=== PATIENT | male | born 1975 | race African-American/Black ===

== ENCOUNTER 2019-02-17 18:55 | Inpatient (IN) | payer OTHER ==
--- NOTE | 2019-02-17 21:26 | HP ---
"COWS - Scale Resting Pulse: 0= PA 80 or Below Sweatin=Flushed/Facial Moisture Restless Observation: 1= Difficult to Sit Still Pupil Size: 2= Moderately Dilated (Pupils = 5 mm) Bone or Joint Aches: 1= Mild Discomfort Runny Nose/ Eye Tearin= Nasal Congestion GI Upset > 30mins: 0= None Tremor Observation: 2= Slight Tremor Visible Yawning Observation: 0= None Anxiety or Irritability: 1=Feels Anxious/Irritable Goose Flesh Skin: 0=Smooth Skin COWS Score: 10 CIWA Score Nausea/Vomitin-No Nausea/No Vomiting Muscle Tremors: 3 Anxiety: 3 Agitation: 3 Paroxysmal Sweats: 3 (Increased facial moisture) Orientation: 0-Oriented Tacttile Disturbances: 0-None Auditory Disturbances: 0-None Visual Disturbances: 0-None Headache: 0-None Present CIWA-Ar Total Score: 12 - Admission Criteria [facility]ASAS Guidelines: Admission for Medically Managed Detox: Requires at least one of the followin. CIWA greater than 12 2. Seizures within the past 24 hours 3. Delirium tremens within the past 24 hours 4. Hallucinations within the past 24 hours 5. Acute intervention needed for co occurring medical disorder 6. Acute intervention needed for co occurring psychiatric disorder 7. Severe withdrawal that cannot be handled at a lower level of care (continued vomiting, continued diarrhea, abnormal vital signs) requiring intravenous medication and/or fluids 8. Patient presents the following: CIWA greater than 12 (DIANE 0.245) Admission Criteria Met: Admission criteria met Admission ROS [facility] Chief Complaint: Here for heroin and alcohol withdrawal. Allergies/Adverse Reactions: Allergies Allergy/AdvReac Type Severity Reaction Status Date / Time No Known Allergies Allergy Verified 02/17/19 20:51 History of Present Illness: Here for alcohol and heroin detox. Alcohol use began at age 12. Current use of 1 pint/day x 3 years. Current DIANE 0.245 Heroin use began at age 21. Current use of 3 bag/day x 1 year. (Nasal) Denies BZO use. Longest length of sobriety 15 months. Denies hx seizures. Hx blackouts. States last today. Hx: 2 overdoses, years ago. Has a Narcan kit at home. PMHx: Heart murmur. Denies heart attack. Denies other significant PMH. MHHx: Some anxiety. Denies depression. Denies thoughts of harming self or others. Search Terms: Callie Jacobsen, 1975 Search Date: 02/17/2019 09:18:50 PM The Drug Utilization Report below displays all of the controlled substance prescriptions, if any, that your patient has filled in the last twelve months. The information displayed on this report is compiled from pharmacy submissions to the Department, and accurately reflects the information as submitted by the pharmacies. This report was requested by: Beverly Rehman | Reference #: [id number] There are no results for the search terms that you entered. Patient Name: CALLIE JACOBSEN Date: 1975 Address: [address] [place] [address] Sex: Male Rx Written Rx Dispensed Drug Strength Quantity Days Supply Prescriber Name 03/01/2017 03/01/2017 HYDROCODON-ACETAMINOPH 7.5-325 15.0 2 DEE VENEGAS TOMMY 03/15/2017 03/15/2017 TRAMADOL HCL 50 MG TABLET 15.0 2 DEE VENEGAS TOMMY 12/09/2017 12/10/2017 TRAMADOL HCL 50 MG TABLET 12.0 4 GARCIA NGUYEN Exam Limitations: No Limitations - Ebola screening Have you traveled outside of the country in the last 21 days: No Have you had contact with anyone from an Ebola affected area: No Have you been sick,other than usual withdrawal symptoms: No Do you have a fever: No - Review of Systems Constitutional: Chills, Diaphoresis, Changes in sleep (Difficulty falling and staying asleep. Not on any medications at this time.) EENT: reports: Nose Congestion Respiratory: reports: No Symptoms reported Cardiac: reports: No Symptoms Reported GI: reports: Indigestion (Occassional heart burn) : reports: No Symptoms Reported Musculoskeletal: reports: Back Pain (from heroin withdrawal) Integumentary: reports: No Symptoms Reported Neuro: reports: Tremors Endocrine: reports: Increased Thirst, Change in Weight (Lost 6 lbs in last 2-3 weeks.) Hematology: reports: No Symptoms Reported Psychiatric: reports: Judgement Intact, Orientated x3, Agitated, Anxious Patient History - PPD History Previous Implant?: Yes Documented Results: Negative w/o proof Implanted On Prior [facility] Admission?: No PPD to be Administered?: Yes - Smoking Cessation Smoking history: Current every day smoker Have you smoked in the past 12 months: Yes Aproximately how many cigarettes per day: 10 Hx Chewing Tobacco Use: No Initiated information on smoking cessation: Yes 'Breaking Loose' booklet given: 02/17/19 - Substance & Tx. History Hx Alcohol Use: Yes Hx Substance Use: Yes Substance Use Type: Alcohol, Heroin, Marijuana Hx Substance Use Treatment: Yes (detox, rehab, past [facility]; ) - Substances abused Alcohol Substance route: Oral Frequency: Daily Amount used: 1 pint liquor Age of first use: 12 Date of last use: 02/17/19 Heroin Substance route: Inhalation Frequency: Daily Amount used: 3 bags Age of first use: 21 (Current amt x 1 yr) Date of last use: 02/17/19 Marijuana/Hashish Substance route: Smoking Frequency: 1-2 times per week Amount used: 1 joint Age of first use: 12 Date of last use: 02/16/19 Admission Physical Exam [facility] - Physical General Appearance: Yes: Mild Distress, Tremorous, Sweating, Anxious HEENTM: Yes: EOMI, Hearing grossly Normal, Normocephalic, Normal Voice, JEVON ( Pupils = 5 mm) Respiratory: Yes: Chest Non-Tender, Lungs Clear, Normal Breath Sounds, No Respiratory Distress, Other (Cough productive of clear phlegm.) Neck: Yes: No masses,lesions,Nodules, Supple Breast: Yes: Breast Exam Deferred Cardiology: Yes: Regular Rhythm, Regular Rate, Murmur Abdominal: Yes: Non Tender, Flat, Soft, Increased Bowel Sounds Genitourinary: Yes: Within Normal Limits Back: Yes: Normal Inspection Musculoskeletal: Yes: full range of Motion, Gait Steady, Joint swelling ( Enlarged (R) knee compared to (L)) Extremities: Yes: Normal Capillary Refill, Normal Range of Motion, Non-Tender, Tremors Neurological: Yes: molded parts inspector II-XII NML intact, Fully Oriented, Alert, Motor Strength 5/5, Normal Mood/Affect Integumentary: Yes: Normal Color, Dry (Decreased skin turgor. except for increased facial moisture), Warm, Diaphoresis (Facial moisture) Lymphatic: Yes: Within Normal Limits - Diagnostic (1) Alcohol dependence with uncomplicated withdrawal Current Visit: Yes Status: Acute (2) Opioid dependence with withdrawal Current Visit: Yes Status: Acute (3) Nicotine dependence, uncomplicated Current Visit: Yes Status: Acute (4) Acid reflux Current Visit: Yes Status: Acute (5) Dehydration Current Visit: Yes Status: Acute (6) Cannabis dependence, uncomplicated Current Visit: Yes Status: Acute (7) Cardiac murmur Current Visit: Yes Status: Acute Cleared for Admission [facility] - Detox or Rehab [facility] Level of Care: Medically Managed Detox Regimen/Protocol: Methadone/Librium Inpatient Rehab Admission - Rehab Decision to Admit Inpatient rehab admission?: No"
[2019-02-17] MEDS ORDERED: guaiFENesin 200 MG/10 ML 10 ML UNIT-DOSE CUPS PO PRN (22:11)
[2019-02-17] MEDS ORDERED: MENTHOL/PHENOL 1 EACH UD MM PRN (22:11)
[2019-02-17] MEDS ORDERED: NICOTINE POLACRILEX 2 MG GUM BUC PRN (22:11)
[2019-02-17] MEDS ORDERED: MAG HYDROX/AL HYDROX/SIMETH 30 ML UNIT-DOSE CUP PO PRN (22:11)
[2019-02-17] MEDS ORDERED: chlordiazePOXIDE HCL 25 MG CAPSULE PO PRN (22:11)
[2019-02-17] MEDS ORDERED: MAGNESIUM HYDROX 2400MG/30ML ORAL SUSPENSION 30 ML CUP PO PRN (22:11)
[2019-02-17] MEDS ORDERED: ACETAMINOPHEN 325 MG TABLET (FP) PO PRN ×2 (22:11)
[2019-02-17] MEDS ORDERED: IBUPROFEN 400 MG TABLET (FP) PO PRN (22:11)
[2019-02-17] MEDS ORDERED: traZODone HCL 50 MG TABLET (FP) PO PRN (22:11)
[2019-02-17] MEDS ORDERED: METHOCARBAMOL 500 MG TABLET PO PRN (22:11)
[2019-02-17] MEDS ORDERED: NALOXONE HCL 0.4 MG/ML VIAL IVPUSH PRN (22:11)
[2019-02-17] MEDS ORDERED: BISMUTH SUBSALICYLATE 524 MG/30 ML UD PO PRN (22:11)
[2019-02-17] MEDS ORDERED: PROCHLORPERAZINE MALEATE 5 MG TABLET PO PRN (22:11)
[2019-02-17] MEDS ORDERED: MAGNESIUM CITRATE 300 ML BOTTLE PO PRN (22:11)
[2019-02-17] MEDS ORDERED: chlordiazePOXIDE HCL 25 MG CAPSULE PO SCH (23:00)
[2019-02-17] MEDS ORDERED: METHADONE HCL 10 MG TABLET (FOR DETOX USE ONLY) PO ONE (23:00)
[2019-02-18] MEDS ORDERED: chlordiazePOXIDE HCL 25 MG CAPSULE PO ONE (00:11)
[2019-02-18] MEDS ORDERED: cloNIDine HCL 0.1 MG TABLET PO PRN (00:11)
[2019-02-18] MEDS ORDERED: P-EPHED 60MG/TRIPROLIDI 2.5MG TABLET PO PRN (00:11)
[2019-02-18] MEDS ORDERED: METHADONE HCL 10 MG TABLET (FOR DETOX USE ONLY) PO ONE ×4 (00:20→23:00)
[2019-02-18] MEDS: PANTOPRAZOLE 20 MG TABLET (FP) PO SCH ×3 (00:57→22:04)
[2019-02-18] MEDS: chlordiazePOXIDE HCL 25 MG CAPSULE PO SCH ×4 (05:37→22:05)
--- NOTE | 2019-02-18 09:19 | PN ---
[facility] CIWA - CIWA Score Nausea/Vomitin Muscle Tremors: 2 Anxiety: 2 Agitation: 2 Paroxysmal Sweats: 2 Orientation: 0-Oriented Tacttile Disturbances: 1-Very Mild Itch/Numbness Auditory Disturbances: 1-Very Mild Visual Disturbances: 0-None Headache: 2-Mild CIWA-Ar Total Score: 14 [facility] COWS - Scale Resting Pulse: 0= [place] 80 or Below Sweatin= Chills/Flushing Restless Observation: 1= Difficult to Sit Still Pupil Size: 1= Pupils >than Normal Bone or Joint Aches: 2= Severe Diffuse Aches Runny Nose/ Eye Tearin= Runny Nose/Eyes GI Upset > 30mins: 2= Nausea/Diarrhea Tremor Observation of Outstretched Hands: 2= Slight Tremor Visible Yawning Observation: 1= 1-2x During Session Anxiety or Irritability: 2=Irritable/Anxious Goose Flesh Skin: 0=Smooth Skin COWS Score: 14 S Progress Note (SOAP) Subjective: alert,irritable,anxious,interrupted sleep,tremor,tremor Objective: 02/18/19 09:16 Vital Signs Temperature 98.4 F 02/18/19 06:00 Pulse Rate 68 02/18/19 08:00 Respiratory Rate 18 02/18/19 08:00 Blood Pressure 126/74 02/18/19 06:00 O2 Sat by Pulse Oximetry (%) ekg sinus bradycardia 42/min qt/qtc 450/418 no chest pain,no sob,no dizziness labs pending Assessment: 02/18/19 09:18 withdrawal symptom Plan: continue detox
[2019-02-18 09:58] LABS: HEMATOCRIT 33.5 % (35.4-49); HEMOGLOBIN 11.3 GM/dL (11.7-16.9); MCH 32.1 pg (25.7-33.7); MCHC 33.7 g/dl (32.0-35.9); MEAN CELL VOLUME 95.2 fl (80-96); MEAN PLT VOLUME 7.7 fl (7.5-11.1); PLATELET COUNT 376 K/MM3 (134-434); RBC 3.52 M/mm3 (4.00-5.60); RDW 14.2 % (11.9-15.9); WHITE BLOOD COUNT 5.3 K/mm3 (4.0-10.0)
[2019-02-18] MEDS: NICOTINE 21 MG/24 HOURS TOPICAL PATCH TD SCH (10:10)
[2019-02-18] MEDS: PRENATAL VITAMINS W/ FOLIC ACID TABLET (FP) PO SCH (10:11)
[2019-02-18 10:24] LABS: ALBUMIN 3.3 g/dl (3.4-5.0); ALK PHOS 55 U/L (45-117); ANION GAP 7 MMOL/L (8-16); BILIRUBIN,TOTAL 0.3 mg/dL (0.2-1); BLOOD UREA NITROGEN 10 mg/dL (7-18); CALCIUM 8.7 mg/dL (8.5-10.1); CHLORIDE 102 mmol/L (98-107); CO2 29 mmol/L (21-32); CREATININE 0.7 mg/dL (0.55-1.3); GLUCOSE,RANDOM 117 mg/dL (74-106); POTASSIUM 3.8 mmol/L (3.5-5.1); SGOT/AST 68 U/L (15-37); SGPT/ALT 45 U/L (13-61); SODIUM 138 mmol/L (136-145); TOT PROT 6.7 g/dl (6.4-8.2)
[2019-02-18 11:35] LABS: EPI CELLS 1.2 /HPF (0-5); PH,URINE 6.5 (5.0-8.0); URINE APPEARANCE CLEAR; URINE BACTERIA 1.4 /hpf (NEGATIVE); URINE BILIRUBIN NEGATIVE (NEGATIVE); URINE CASTS 1 /hpf (0-8); URINE COLOR YELLOW; URINE GLUCOSE (UA) NEGATIVE (NEGATIVE); URINE KETONE NEGATIVE (NEGATIVE); URINE LEUK ESTERASE NEGATIVE (NEGATIVE); URINE NITRITE NEGATIVE (NEGATIVE); URINE PROTEIN 1+ (NEGATIVE); URINE RBC 0 /hpf (0-4); URINE UROBILINOGEN 0.2 mg/dL (0.2-1.0); URINE WBC 1 /hpf (0-5)
--- NOTE | 2019-02-18 14:46 | EKG ---
Test Reason : Blood Pressure : / mmHG Vent. Rate : 052 BPM Atrial Rate : 052 BPM P-R Int : 180 ms QRS Dur : 090 ms QT Int : 450 ms P-R-T Axes : 053 064 060 degrees QTc Int : 418 ms SINUS BRADYCARDIA OTHERWISE NORMAL ECG NO PREVIOUS ECGS AVAILABLE Confirmed by Dinh Chu ([id number]) on 02/18/2019 2:45:42 PM Referred By: Confirmed By:Dinh Chu
[2019-02-18] MEDS: MELATONIN 5 MG TABLETS PO PRN (22:04)
[2019-02-18] MEDS: THIAMINE HCL 100 MG TABLET (FP) PO SCH (22:04)
[2019-02-18] MEDS ORDERED: chlordiazePOXIDE HCL 25 MG CAPSULE PO SCH (23:00)
[2019-02-19] MEDS: chlordiazePOXIDE HCL 25 MG CAPSULE PO SCH ×4 (05:36→22:13)
[2019-02-19] MEDS ORDERED: METHADONE HCL 10 MG TABLET (FOR DETOX USE ONLY) PO ONE ×2 (10:00)
[2019-02-19] MEDS: PRENATAL VITAMINS W/ FOLIC ACID TABLET (FP) PO SCH (10:27)
[2019-02-19] MEDS: PANTOPRAZOLE 20 MG TABLET (FP) PO SCH ×2 (10:28→22:13)
[2019-02-19] MEDS: NICOTINE 21 MG/24 HOURS TOPICAL PATCH TD SCH (10:29)
--- NOTE | 2019-02-19 10:36 | PN ---
[facility] CIWA - CIWA Score Nausea/Vomitin-Mild Nausea/No Vomiting Muscle Tremors: 1-None Visible, but [place] Anxiety: 1-Mildly Anxious Agitation: 1-Slight > Activity Paroxysmal Sweats: 1-Minimal Palms Moist Orientation: 0-Oriented Tacttile Disturbances: 0-None Auditory Disturbances: 0-None Visual Disturbances: 0-None Headache: 0-None Present CIWA-Ar Total Score: 5 S COWS - Scale Resting Pulse: 0= MD 80 or Below Restless Observation: 0= Sits Still Pupil Size: 0= Normal to Room Light Bone or Joint Aches: 0= None Runny Nose/ Eye Tearin= None GI Upset > 30mins: 0= None Tremor Observation of Outstretched Hands: 0= None Yawning Observation: 0= None Anxiety or Irritability: 1=Feels Anxious/Irritable Goose Flesh Skin: 0=Smooth Skin [facility] Progress Note (SOAP) Subjective: pt states feels better on alcohol and heroin detox protocol, no complaints today O: Vital Signs - 24 hr 02/18/19 02/18/19 02/18/19 11:00 11:30 12:00 Temperature Pulse Rate 79 88 88 Respiratory 16 16 16 Rate Blood Pressure 02/18/19 02/18/19 02/18/19 12:30 13:00 13:30 Temperature Pulse Rate 78 74 77 Respiratory 16 16 16 Rate Blood Pressure 02/18/19 02/18/19 02/18/19 14:00 14:30 15:00 Temperature Pulse Rate 81 72 64 Respiratory 16 16 16 Rate Blood Pressure 02/18/19 02/18/19 02/18/19 15:30 16:00 16:30 Temperature Pulse Rate 68 78 55 L Respiratory 16 16 16 Rate Blood Pressure 02/18/19 02/18/19 02/18/19 16:48 17:00 17:30 Temperature 98.2 F Pulse Rate 55 L 98 H 78 Respiratory 16 16 16 Rate Blood Pressure 148/89 02/18/19 02/18/19 02/18/19 18:00 18:30 19:00 Temperature Pulse Rate 68 90 98 H Respiratory 16 16 16 Rate Blood Pressure 02/18/19 02/18/19 02/18/19 19:30 20:00 20:30 Temperature Pulse Rate 71 72 68 Respiratory 16 18 18 Rate Blood Pressure 0402/18/19 02/18/19 21:00 21:10 21:30 Temperature 98.2 F Pulse Rate 80 57 L Respiratory 18 18 62 H Rate Blood Pressure 149/98 02/18/19 02/18/19 02/18/19 22:00 22:30 23:00 Temperature Pulse Rate 80 92 H 92 H Respiratory Rate Blood Pressure 02/18/19 02/19/19 02/19/19 23:30 00:00 00:30 Temperature Pulse Rate 78 82 82 Respiratory 18 18 18 Rate Blood Pressure 02/19/19 02/19/19 02/19/19 03:30 07:46 09:05 Temperature 97.7 F 97.7 F Pulse Rate 58 L 60 Respiratory 18 18 18 Rate Blood Pressure 144/72 129/57 L Laboratory Tests 02/18/19 02/18/19 02/18/19 00:02 07:00 07:00 WBC 5.3 RBC 3.52 L Hgb 11.3 L Hct 33.5 L MCV 95.2 MCH 32.1 MCHC 33.7 RDW 14.2 Plt Count 376 MPV 7.7 Sodium 138 Potassium 3.8 Chloride 102 Carbon Dioxide 29 Anion Gap 7 L BUN 10 Creatinine 0.7 Creat Clearance w eGFR 121.95 Random Glucose 117 H Calcium 8.7 Total Bilirubin 0.3 AST 68 H ALT 45 Alkaline Phosphatase 55 Total Protein 6.7 Albumin 3.3 L Urine Color Yellow Urine Appearance Clear Urine pH 6.5 Ur Specific [place] 1.011 Urine Protein 1+ H Urine Glucose (UA) Negative Urine Ketones Negative Urine Blood Negative Urine Nitrite Negative Urine Bilirubin Negative Urine Urobilinogen 0.2 Ur Leukocyte Esterase Negative Urine WBC (Auto) 1 Urine RBC (Auto) 0 Urine Casts (Auto) 1 U Epithel Cells (Auto) 1.2 Urine Bacteria (Auto) 1.4 RPR Titer 02/18/19 07:00 WBC RBC Hgb Hct MCV MCH MCHC RDW Plt Count MPV Sodium Potassium Chloride Carbon Dioxide Anion Gap BUN Creatinine Creat Clearance w eGFR Random Glucose Calcium Total Bilirubin AST ALT Alkaline Phosphatase Total Protein Albumin Urine Color Urine Appearance Urine pH Ur Specific [place] Urine Protein Urine Glucose (UA) Urine Ketones Urine Blood Urine Nitrite Urine Bilirubin Urine Urobilinogen Ur Leukocyte Esterase Urine WBC (Auto) Urine RBC (Auto) Urine Casts (Auto) U Epithel Cells (Auto) Urine Bacteria (Auto) RPR Titer Nonreactive labs mild anemia increased AST VS: WNL a/p: continue alcohol and methadone detox protocols: pt doing better today, d/w pt long MAT for heroin and alcohol Tx options
[2019-02-19] MEDS: chlordiazePOXIDE HCL 25 MG CAPSULE PO PRN ×2 (12:24→19:16)
[2019-02-19] MEDS: THIAMINE HCL 100 MG TABLET (FP) PO SCH (22:13)
[2019-02-19] MEDS: MELATONIN 5 MG TABLETS PO PRN (22:14)
[2019-02-19] MEDS ORDERED: chlordiazePOXIDE HCL 10 MG CAPSULE PO PRN (23:00)
[2019-02-19] MEDS ORDERED: chlordiazePOXIDE HCL 10 MG CAPSULE PO SCH (23:00)
[2019-02-20] MEDS: chlordiazePOXIDE HCL 25 MG CAPSULE PO PRN (02:42)
[2019-02-20] MEDS: chlordiazePOXIDE HCL 10 MG CAPSULE PO SCH ×2 (06:28→10:26)
--- NOTE | 2019-02-20 09:06 | PN ---
[facility] Progress Note (SOAP) Subjective: alert,irritable,anxious,interrupted sleep,painiin the body and back Objective: 02/20/19 09:05 Vital Signs Temperature 98.2 F 02/20/19 07:27 Pulse Rate 67 02/20/19 07:27 Respiratory Rate 18 02/20/19 07:27 Blood Pressure 130/80 02/20/19 07:27 O2 Sat by Pulse Oximetry (%) Assessment: 02/20/19 09:06 withdrawal symptom Plan: continue detox,discharge in am
--- NOTE | 2019-02-20 09:30 | CONSULT ---
[facility] Psychiatric Consult - Data Date of interview: 02/20/19 Admission source: [facility] Identifying data: Patient is a 44 year old single male, without children, unemployed, and currently homeless. This is patient's first admission to detox at [facility]. Patient admitted to for alcohol and opioid dependence. Substance Abuse History: Smoking Cessation. Smoking history: Current every day smoker. Have you smoked in the past 12 months: Yes. Aproximately how many cigarettes per day: 10. Hx Chewing Tobacco Use: No. Initiated information on smoking cessation: Yes. 'Breaking Loose' booklet given: 02/17/19. - Substance & Tx. History. Hx Alcohol Use: Yes. Hx Substance Use: Yes. Substance Use Type : Alcohol, Heroin, Marijuana. Hx Substance Use Treatment: Yes (detox, rehab, past [facility]; ). - Substances abused. Alcohol. Substance route: Oral. Frequency: Daily. Amount used: 1 pint liquor. Age of first use: 12. Date of last use: 02/17/19. Heroin. Substance route: Inhalation. Frequency: Daily. Amount used: 3 bags. Age of first use: 21 (Current amt x 1 yr). Date of last use: 02/17/19. Marijuana/Hashish. Substance route: Smoking. Frequency: 1-2 times per week. Amount used: 1 joint. Age of first use: 12. Date of last use: 02/16/19 Medical History: Heart murmur Psychiatric History: Patient's first psychiatric contact was as a child to address his "acting out" behavior. Than as a [age] year old he reports seeing a psychiatrist daily while he was in the [facility] [employer] [employer] program. He reports seeing additional psychiatrist throghout his years as an adolescent. He denies accepting psychotropic medications as a child. As an adult he reports intermittent psychiatric treatment. He reports most recently seeing a psychiatrist last year in [place] and reports taking a "medication" he can't recall. Patient with a history of noncompliance to psychiatric treatment. Mr. Flores denies h/o psychiatric hospitalizations and suicide attempt. At present , he reports anxiety. Physical/Sexual Abuse/Trauma History: denies. Mental Status Exam - Mental Status Exam Alert and Oriented to: Time, Place, Person Cognitive Function: Good Patient Appearance: Well Groomed Mood: Sad Affect: Appropriate Patient Behavior: Cooperative Speech Pattern: Appropriate Voice Loudness: Normal Thought Process: Intact, Goal Oriented Thought Disorder: Not Present Hallucinations: Denies Suicidal Ideation: Denies Homicidal Ideation: Denies Insight/Judgement: Poor Sleep: Fair Appetite: Fair Muscle strength/Tone: Normal Gait/Station: Normal Psychiatric Findings - Problem List ([place] 1, 2,3) (1) Substance induced mood disorder Current Visit: Yes Status: Acute (2) Alcohol dependence with uncomplicated withdrawal Current Visit: Yes Status: Acute (3) Cannabis dependence, uncomplicated Current Visit: Yes Status: Acute (4) Nicotine dependence, uncomplicated Current Visit: Yes Status: Acute (5) Opioid dependence with withdrawal Current Visit: Yes Status: Acute - Initial Treatment Plan Initial Treatment Plan: Psychoeducation provided. Detoxification in progress. Will increase vistaril 25mg q6h to 50mg q6h. Benefits and side effects discussed. Verbal consent given.
[2019-02-20] MEDS ORDERED: METHADONE HCL 10 MG TABLET (FOR DETOX USE ONLY) PO ONE ×2 (10:00)
[2019-02-20] MEDS: PANTOPRAZOLE 20 MG TABLET (FP) PO SCH ×2 (10:26→22:13)
[2019-02-20] MEDS: PRENATAL VITAMINS W/ FOLIC ACID TABLET (FP) PO SCH (10:26)
[2019-02-20] MEDS: NICOTINE 21 MG/24 HOURS TOPICAL PATCH TD SCH (10:27)
[2019-02-20] MEDS: chlordiazePOXIDE HCL 10 MG CAPSULE PO PRN ×2 (13:21→17:37)
[2019-02-20] MEDS ORDERED: hydrOXYzine PAMOATE 50 MG CAPSULE (FP) PO PRN (19:11)
[2019-02-20] MEDS: THIAMINE HCL 100 MG TABLET (FP) PO SCH (22:13)
[2019-02-20] MEDS: MELATONIN 5 MG TABLETS PO PRN (22:15)
[2019-02-20] MEDS ORDERED: chlordiazePOXIDE HCL 10 MG CAPSULE PO SCH (23:00)
[2019-02-20] MEDS ORDERED: chlordiazePOXIDE HCL 10 MG CAPSULE PO ONE (23:00)
[2019-02-21] MEDS ORDERED: chlordiazePOXIDE HCL 10 MG CAPSULE PO SCH (05:00)
[2019-02-21] MEDS ORDERED: chlordiazePOXIDE HCL 10 MG CAPSULE PO ONE (06:00)
[2019-02-21] MEDS ORDERED: METHADONE HCL 5 MG TABLET (FOR DETOX USE ONLY) PO ONE (06:00)
[2019-02-21] MEDS ORDERED: METHADONE HCL 10 MG TABLET (FOR DETOX USE ONLY) PO ONE ×2 (06:00→10:00)
[2019-02-21 06:31] VITALS: BP 117/73; PULSE 54; TEMP 98.4
--- NOTE | 2019-02-21 08:53 | DS ---
[facility] Detox Discharge Summary Admission Date: 02/17/19 Discharge Date: 02/21/19 - History Present History: Alcohol Dependence, Cannabis Dependence, Opioid Dependence - Physical Exam Results Vital Signs: Vital Signs Temperature 98.4 F 02/21/19 06:31 Pulse Rate 54 L 02/21/19 06:31 Respiratory Rate 18 02/21/19 06:31 Blood Pressure 117/73 02/21/19 06:31 O2 Sat by Pulse Oximetry (%) - Treatment Hospital Course: Detox Protocol Followed, Detoxed Safely, Responded well, Discharged Condition Good, Rehab Referral Accepted - Medication Discharge Medications: Ambulatory Orders NK [No Known Home Medication] 02/17/19 - Diagnosis (1) Acid reflux Current Visit: Yes Status: Chronic Qualifiers: Esophagitis presence: without esophagitis Qualified Code(s): K21.9 - Gastro -esophageal reflux disease without esophagitis (2) Alcohol dependence with uncomplicated withdrawal Current Visit: Yes Status: Chronic (3) Cannabis dependence, uncomplicated Current Visit: Yes Status: Chronic (4) Cardiac murmur Current Visit: Yes Status: Acute (5) Dehydration Current Visit: Yes Status: Acute (6) Nicotine dependence, uncomplicated Current Visit: Yes Status: Acute Qualifiers: Nicotine product type: cigarettes Qualified Code(s): F17.210 - Nicotine dependence, cigarettes, uncomplicated (7) Opioid dependence with withdrawal Current Visit: Yes Status: Chronic (8) Substance induced mood disorder Current Visit: Yes Status: Acute - AMA Did Patient Leave Against Medical Advice: No (referred to outpatient rehab)
[2019-02-22] MEDS ORDERED: METHADONE HCL 5 MG TABLET (FOR DETOX USE ONLY) PO ONE (06:00)
== END 2019-02-21 09:29 | disposition home or self-care (01) | DRG 773 ==
LOC: YASAS 18:55 → Y6N 22:47
PROVIDERS: ADMIT Surgery; ATTEND Surgery
PROC: HZ2ZZZZ Detoxification Services for Substance Abuse Treatment (ICD-10-PCS; principal; 2019-02-17)
DX: F11.23 Opioid dependence with withdrawal (principal); F10.230 Alcohol dependence with withdrawal, uncomplicated; F12.20 Cannabis dependence, uncomplicated; F17.210 Nicotine dependence, cigarettes, uncomplicated; F19.24 Other psychoactive substance dependence with psychoactive substance-induced mood disorder; K21.9 Gastro-esophageal reflux disease without esophagitis; E86.0 Dehydration; R01.1 Cardiac murmur, unspecified
CPT/HCPCS: 36415; 80053; 81003; 85027; 86593; 93005; 93010; J0735